=== PATIENT | female | born 1975 | race Caucasian/White ===

== ENCOUNTER 2016-12-11 23:18 | Emergency (ER) | payer SELFPAY ==
[~2016-12-11] VITALS: Ht 165.1 cm; Wt 74.5 kg
[~2016-12-11 23:18] MED LIST: DOCO200C5 PO
[2016-12-11 23:46] VITALS: Ht 165.1 cm; Wt 74.5 kg
[2016-12-12] MEDS ORDERED: ACETAMINOPHEN 500 MG TAB PO STA (02:26)
[2016-12-12 02:51] LABS: ADD SCAN DIFF NO
[2016-12-12 02:54] LABS: BASOPHIL # 0.1 10^3/ul (0.0-0.1); BASOPHILS % 0.4 % (0.0-2.0); EOSINOPHILS # 0.3 10^3/ul (0.0-0.5); EOSINOPHILS % 2.1 % (0.0-7.0); HEMATOCRIT 36.8 % (37.0-47.0); HEMOGLOBIN 12.8 g/dl (12.0-16.0); LYMPHOCYTES # 3.4 10^3/ul (0.8-2.9); LYMPHOCYTES % 28.7 % (15.0-51.0); MEAN CORPUSCULAR HEMOGLOBIN 30.9 pg (29.0-33.0); MEAN CORPUSCULAR HGB CONC 34.8 g/dl (32.0-37.0); MEAN CORPUSCULAR VOLUME 88.9 fl (82.0-101.0); MEAN PLATELET VOLUME 8.7 fl (7.4-10.4); MONOCYTE # 1.1 10^3/ul (0.3-0.9); NEUTROPHIL # 7.1 10^3/ul (1.6-7.5); NEUTROPHILS % 59.5 % (39.0-77.0); PLATELET COUNT 266 10^3/UL (140-415); RED BLOOD COUNT 4.14 10^6/ul (4.20-5.40); RED CELL DISTRIBUTION WIDTH 12.8 % (11.5-14.5)
[2016-12-12 02:56] LABS: ADD UMIC YES; UR ASCORBIC ACID NEGATIVE (NEGATIVE); UR BACTERIA FEW /HPF (NONE SEEN); UR BILIRUBIN (Dip) NEGATIVE (NEGATIVE); UR BLOOD (Dip) 3+ mg/dL (NEGATIVE); UR CLARITY CLEAR (CLEAR); UR COLOR YELLOW (YELLOW); UR GLUCOSE (Dip) NEGATIVE (NEGATIVE); UR KETONES (Dip) NEGATIVE (NEGATIVE); UR LEUKOCYTE ESTERASE (Dip) NEGATIVE Leu/ul (NEGATIVE); UR NITRITE (Dip) NEGATIVE (NEGATIVE); UR RBC 9 /HPF (0-5); UR SPECIFIC GRAVITY (Dip) 1.013 (1.003-1.030); UR TOTAL PROTEIN (Dip) NEGATIVE (NEGATIVE); UR UROBILINOGEN (Dip) NEGATIVE (NEGATIVE)
--- NOTE | 2016-12-12 03:12 | RADRPT ---
PROCEDURE: US OB. CLINICAL INDICATION: Vaginal bleeding. Clinical estimate gestational age is 9 weeks 1 day with e stimated date of delivery 07/16/2017 TECHNIQUE: Transabdominal views of the pelvis are available for review. COMPARISON: No prior studies are available for comparison. FINDINGS: Lely-rump length:3.12 cm, 10 weeks 0 days gestational age Mean gestational sac diameter: 5.16 cm, 11 weeks 3 days gestational age heart rate:163 beats per minute Ultrasound estimated gestational age:10 weeks 5 days gestational age 0207/05/2017 The left ovary measures 4.5 x 3.6 x 3.3 cm. There is a 3.7 x 2.9 x 2.8 cm left ovarian cyst. The ri ght ovary is not seen. Color flow and spectral analysis demonstrates normal arterial and venous flow in the left ovary. No free intrapelvic fluid is seen. IMPRESSION: 1. Single live intrauterine with an estimated gestational age of 10 weeks 5 days based on ultrasound measurements. 3.7 cm left ovarian cyst. RPTAT: HJES .Edward Handy MD, Date Time Electronically viewed and signed by .Edward Handy MD, on 12/12/2016 03:11 .S/
--- NOTE | 2016-12-12 03:36 | ERD ---
ER Documentation Chief Complaint Date/Time DATE: 12/12/16 TIME: 03:35 Chief Complaint abd pain and vag bleed since this am, + preg HPI 41-year-old female presents here in emergency department for complaints of vaginal bleeding and abdominal pain that started this morning, started as a spotting, patient is at 10 weeks, patient is 4 para 3 abortions 0. Patient denies any vomiting or diarrhea. Patient denies any flank pain. Patient describes the abdominal pain as cramping pain 4/10 scale, more on the lower abdomen, pelvic area. It is accompanied by the bleeding. ROS All systems reviewed and are negative except as per history of present illness. Medications Home Meds Reported Medications Docosahexanoic Acid ( DHA) 200 Mg Capsule, 200 MG PO DAILY 10/08/13 Allergies Allergies: Coded Allergies: No Known Allergies (Verified Allergy, Unknown, 11/08/13) PMhx/Soc Medical and Surgical Hx: pt denies Medical Hx, pt denies Surgical Hx History of Surgery: No (C SECTION X3, EAR SX) Anesthesia Reaction: No Hx Neurological Disorder: No Hx Respiratory Disorders: No Hx Cardiac Disorders: No Hx Psychiatric Problems: No Hx Miscellaneous Medical Probl: No Hx Alcohol Use: No Hx Substance Use: No Hx Tobacco Use: No Smoking Status: Never smoker FmHx Family History: No coronary disease, No diabetes, No other Physical Exam Vitals Vital Signs Date Time Temp Pulse Resp B/P Pulse Ox O2 Delivery O2 Flow Rate FiO2 12/11/16 23:46 98.5 82 18 133/60 100 Physical Exam GENERAL: The patient is well developed and appropriate for usual state of health, in no apparent distress. CHEST: Clear to auscultation bilaterally. There are no rales, wheezes or rhonchi. HEART: Regular rate and rhythm. No murmurs, clicks, rubs or gallops. No S3 or S4. ABDOMEN: Soft, nontender and nondistended. Good bowel sounds. No rebound or guarding. No gross peritonitis. No gross organomegaly or masses. No Ramirez sign or McBurney point tenderness. BACK: No midline or flank tenderness. EXTREMITIES: Equal pulses bilaterally. There is no peripheral clubbing, cyanosis or edema. No focal swelling or erythema. Full range of motion. Grossly neurovascularly intact. NEURO: Alert and oriented. Cranial nerves 2-12 intact. Motor strength in all 4 extremities with 5/5 strength. Sensation grossly intact. Normal speech and gait. SKIN: There is no apparent rash or petechia. The skin is warm and dry. HEMATOLOGIC AND LYMPHATIC: There is no evidence of excessive bruising or lymphedema. No gross cervical, axillary, or inguinal lymphadenopathy. VAGINAL: Small amount of blood in the vaginal vault, cervical os is closed.No cervical motion tenderness or adnexal tenderness noted. Result Diagram: 12/12/16 0239 Results 24 hrs Laboratory Tests Test 12/12/16 02:30 12/12/16 02:39 Urine Color YELLOW Urine Clarity CLEAR Urine pH 6.0 Urine Specific [place] 1.013 Urine Ketones NEGATIVEmg/dL Urine Nitrite NEGATIVEmg/dL Urine Bilirubin NEGATIVEmg/dL Urine Urobilinogen NEGATIVEmg/dL Urine Leukocyte Esterase NEGATIVELeu/ul Urine Microscopic RBC 9/HPF Urine Microscopic WBC 1/HPF Urine Bacteria FEW/HPF Urine Hemoglobin 3+mg/dL Urine Glucose NEGATIVEmg/dL Urine Total Protein NEGATIVEmg/dl White Blood Count 12.010^3/ul Red Blood Count 4.1410^6/ul Hemoglobin 12.8g/dl Hematocrit 36.8% Mean Corpuscular Volume 88.9fl Mean Corpuscular Hemoglobin 30.9pg Mean Corpuscular Hemoglobin Concent 34.8g/dl Red Cell Distribution Width 12.8% Platelet Count 65984^3/UL Mean Platelet Volume 8.7fl Neutrophils % 59.5% Lymphocytes % 28.7% Monocytes % 9.0% Eosinophils % 2.1% Basophils % 0.4% Nucleated Red Blood Cells % 0.0/100WBC Neutrophils # 7.110^3/ul Lymphocytes # 3.410^3/ul Monocytes # 1.110^3/ul Eosinophils # 0.310^3/ul Basophils # 0.110^3/ul Nucleated Red Blood Cells # 0.010^3/ul Beta HCG, Quantitative 834620.0mIU/ml Current Medications Medications (Trade) Dose Ordered Sig/Shruti Route PRN Reason Start Time Stop Time Status Last Admin Dose Admin Acetaminophen (Tylenol Tab) 500 mg ONCE STAT PO 12/12/16 02:26 12/12/16 02:28 DC 12/12/16 02:40 Patient was given medication for pain here in emergency department, after treatment, patient verbalized feeling much better. Patient's pain is improved. PROCEDURE: US OB. CLINICAL INDICATION: Vaginal bleeding. Clinical estimate gestational age is 9 weeks 1 day with estimated date of delivery 07/16/2017 TECHNIQUE: Transabdominal views of the pelvis are available for review. COMPARISON: No prior studies are available for comparison. FINDINGS: [place]-rump length: 3.12 cm, 10 weeks 0 days gestational age Mean gestational sac diameter: 5.16 cm, 11 weeks 3 days gestational age heart rate: 163 beats per minute Ultrasound estimated gestational age: 10 weeks 5 days gestational age 0207/05/2017 The left ovary measures 4.5 x 3.6 x 3.3 cm. There is a 3.7 x 2.9 x 2.8 cm left ovarian cyst. The right ovary is not seen. Color flow and spectral analysis demonstrates normal arterial and venous flow in the left ovary. No free intrapelvic fluid is seen. IMPRESSION: 1. Single live intrauterine with an estimated gestational age of 10 weeks 5 days based on ultrasound measurements. 3.7 cm left ovarian cyst. RPTAT: HJES .Edward Handy MD, MD Date Time Electronically viewed and signed by .Edward Handy MD, MD on 12/12/2016 03:11 .S/ Procedures/MDM Medical Decision Making: Patients vaginal bleeding is most likely consistent of possible threatened . Patient does not show any evidence of hypovolemic shock. Patients hemoglobin and hematocrit is stable. There is low suspicion for ectopic . MICHAEL results show intrauterine at 10 weeks and an ovarian cyst. BetaHCG Quantitative is is appropriate for The patient is Rh+, does not need RhoGAM this time. There is no signs of symptoms of dehydration. There is low suspicion for sepsis. Patient appears well and is hemodynamically stable. 3 Disposition: Home. Condition: Stable Prescription: Tylenol Instructions: Patient is advised to do bed rest, avoid heavy lifting, and avoid having sex until cleared by OB doctor. Patient is advised to follow up with OB doctor or here at the ER in 48 hours for reevaluation of symptoms, repeat beta HCG quantitative and ultrasound. Patient is advised that is symptoms are worst, severe bleeding, dizziness, severe abdominal pain, fever, worst signs and symptoms to return to the emergency department immediately. Departure Diagnosis: Primary Impression: Vaginal bleeding in patient at less than 20 weeks gestation Additional Impressions: Intrauterine Ovarian cyst Laterality: left Qualified Code: N83.202 - Cyst of left ovary Condition: Stable Patient Instructions: Bleeding During Early , Ovarian Cyst Additional Instructions: Patient is advised to do bed rest, avoid heavy lifting, and avoid having sex until cleared by OB doctor. Patient is advised to follow up with OB doctor or here at the ER in 48 hours for reevaluation of symptoms, repeat beta HCG quantitative and ultrasound. Patient is advised that is symptoms are worst, severe bleeding, dizziness, severe abdominal pain, fever, worst signs and symptoms to return to the emergency department immediately. AMOS WHEATLEY NP Dec 12, 2016 03:36
[2016-12-12] MEDS ORDERED: ACET500C5 PO (04:18)
[2016-12-12 04:40] VITALS: BP 114/58; PULSE 73; RESP 18; TEMP 97.9
== END 2016-12-12 04:43 | disposition home or self-care (01) ==
LOC: FTE 23:18
DX: O20.9 Hemorrhage in early pregnancy, unspecified (principal); O34.81 Maternal care for other abnormalities of pelvic organs, first trimester; R10.2 Pelvic and perineal pain; Z3A.10 10 weeks gestation of pregnancy
CPT/HCPCS: 36415; 76801; 81001; 84702; 85025; 86900; 86901

== ENCOUNTER 2017-06-19 07:55 | Outpatient (CLI) | END 2017-06-19 09:15 | disposition home or self-care (01) ==